=== PATIENT | female | born 1985 | race Caucasian/White ===

== ENCOUNTER 2018-02-05 08:34 | Emergency (ER) | payer MEDICAID ==
[~2018-02-05] VITALS: Ht 152.4 cm; Wt 59.0 kg
[2018-02-05 08:38] VITALS: BP 116/72
== END 2018-02-05 09:59 | disposition home or self-care (01) ==
LOC: ER 08:35
DX: J02.9 Acute pharyngitis, unspecified (principal)
CPT/HCPCS: A4606; Z7610

== ENCOUNTER 2024-06-04 20:24 | Emergency (ER) | payer MEDICAID ==
[~2024-06-04] VITALS: Ht 162.6 cm; Wt 70.3 kg
[2024-06-04 20:31] VITALS: BP 134/89; TEMP 98.5
[2024-06-04] MEDS ORDERED: AMOXICILLIN TRIHYDRATE 250 MG CAPSULE ONE (21:37)
[2024-06-04] MEDS ORDERED: predniSONE 20 MG TABLET ONE (21:37)
[2024-06-04] MEDS ORDERED: diphenhydrAMINE HCL 25 MG CAPSULE ONE (21:38)
[2024-06-04] MEDS: AMOXICILLIN TRIHYDRATE 500 MG CAPSULE PO ONE (21:39)
[2024-06-04] MEDS: predniSONE 10 MG TABLET PO ONE (21:39)
[2024-06-04] MEDS: diphenhydrAMINE HCL 50 MG CAPSULE PO ONE (21:39)
[2024-06-04] MEDS ORDERED: IBUP-1955 PO (21:51)
[2024-06-04] MEDS ORDERED: ACET-2605 PO (21:51)
[2024-06-04] MEDS ORDERED: AMOX500C2 PO (21:51)
[2024-06-04] MEDS ORDERED: CIPR10DR LEFT EAR (21:51)
[2024-06-04 21:56] VITALS: O2SAT 99
== END 2024-06-04 21:56 | disposition home or self-care (01) ==
LOC: ER 20:49
DX: H60.92 Unspecified otitis externa, left ear (principal); H66.92 Otitis media, unspecified, left ear; Z87.19 Personal history of other diseases of the digestive system
CPT/HCPCS: 99284; Q0163; J7512 ×2